=== PATIENT | male | born 1985 | race Caucasian/White ===

== ENCOUNTER 2017-02-19 23:04 | Emergency (ER) | payer MEDICAID | END 2017-02-20 03:25 | disposition home or self-care (01) | LOC: E/R 23:04 | DX: S41.101D Unspecified open wound of right upper arm, subsequent encounter (principal); S41.102D Unspecified open wound of left upper arm, subsequent encounter; S81.801D Unspecified open wound, right lower leg, subsequent encounter; S81.802D Unspecified open wound, left lower leg, subsequent encounter; X58.XXXD Exposure to other specified factors, subsequent encounter | CPT/HCPCS: 99284; Z7502 ==

== ENCOUNTER 2017-05-24 03:05 | Emergency (ER) | payer MEDICAID | END 2017-05-24 04:55 | disposition home or self-care (01) | LOC: FTE 03:05 | DX: L03.90 Cellulitis, unspecified (principal) | CPT/HCPCS: 99284; Z7502 ==

== ENCOUNTER 2018-02-07 02:36 | Emergency (ER) | payer MEDICAID | END 2018-02-07 03:27 | disposition home or self-care (01) | LOC: FTE 02:36 | DX: L01.00 Impetigo, unspecified (principal) | CPT/HCPCS: 99283; Z7502 ==